=== PATIENT | female | born 1960 | race Caucasian/White ===

== ENCOUNTER 2022-03-18 10:30 | Emergency (ER) | payer OTHER, SELFPAY ==
[2022-03-18 10:35] VITALS: BP 143/99; PULSE 94; RESP 20; TEMP 34.9; O2SAT 96; BMI 26.6
--- NOTE | 2022-03-18 10:54 | ED_ITS ---
HPI - General Adult General Chief complaint: Laceration/Wound Stated complaint: Cut L index finger with knife Time Seen by Provider: 03/18/22 10:37 History of Present Illness HPI narrative: Patient presents with a knife cut to her dorsum of her index finger. She did this accidentally while cleaning a knife in sharpening it. She is about 9 years from her last tetanus shot. Has been recovering from breast and ovarian cancer in the past she is doing well from that apparently. Related Data Allergies Allergy/AdvReac Type Severity Reaction Status Date / Time Penicillins Allergy Verified 03/18/22 10:35 Review of Systems Narrative: No history of chronic wounds or infection problems or healing issues PFSH PFSH Social History Smoking Status: Never smoker Do you use any of these nicotine containing products: None Second hand tobacco smoke exposure: No How often do you have a drink containing alcohol: 2-4 times a month How many standard drinks containing alcohol do you have on a typical day: 1 or 2 How often do you have six or more drinks on one occasion: Never AUDIT-C Alcohol total score: 2 Non-prescribed substance use: denies use service: No Exam Narrative: Exam Narrative: Objective small tangential caught over the proximal dorsum of the index finger she got full extension and flexion of the finger no neurovascular tendon invol vement apparent. Good distal CMS Procedure: After 1% xylocaine without epinephrine injected for anesthesia 3-0 simple opted Ethilon placed x3 good skin edge approximation good hemostasis Const: Vital Signs, click to edit/add: Vital Signs - 24 hr 03/18/22 10:35 Temperature 94.9 F L Pulse Rate [Pulse Oximeter] 94 Respiratory Rate 20 Blood Pressure [Ri ght Upper Arm] 143/99 H Pulse Oximetry 96 Oxygen Delivery Me thod Room Air Course Vital Signs Vital signs: Initial Vital Signs Temperature 94.9 F L 03/18/22 10:35 Temperature Source Temporal Artery Scan 03/18/22 10:35 Pulse Rate 94 03/18/22 10:35 Pulse Rhythm 03/18/22 10:35 Respiratory Rate 20 03/18/22 10:35 Blood Pressure 143/99 H 03/18/22 10:35 Blood Pressure Mean 113 03/18/22 10:35 Blood Pressure Position Supine 03/18/22 10:35 Pulse Oximetry 96 03/18/22 10:35 Oxygen Delivery Method 03/18/22 10:35 Vital Signs Temperature 94.9 F L 03/18/22 10:35 Pulse Rate 94 03/18/22 10:35 Respiratory Rate 20 03/18/22 10:35 Blood Pressure 143/99 H 03/18/22 10:35 Pulse Oximetry 96 03/18/22 10:35 Oxygen Delivery Method 03/18/22 10:35 Temperature 94.9 F L 03/18/22 10:35 Pulse Rate 94 03/18/22 10:35 Respiratory Rate 20 03/18/22 10:35 Blood Pressure 143/99 H 03/18/22 10:35 Pulse Oximetry 96 03/18/22 10:35 Oxygen Delivery Method 03/18/22 10:35 Medical Decision Making MDM Narrative Medical decision making narrative: Suture removal in 1 week, watch for redness infection, keep covered until tomorrow then may simply leave open to air. Discharge Plan Discharge Clinical Impression: Laceration Patient Disposition: Home, Self-Care Condition: Improved Additional Instructions: Suture removal in 7 days, watch for infection redness, keep covered till tomorrow and then may just simply leave open to air. Return as needed. Activity Level: Light activity Discharge Diet: Regular Follow Up/Referrals: Willis Robledo MD [Primary Care Provider] - Stand Alone Forms: [employer] Info Instructions
[2022-03-18] MEDS: TETANUS/DIPHTH/PERTUSSIS 0.5 ML SYRINGE IM (11:07)
== END 2022-03-18 11:11 | disposition home or self-care (01) ==
LOC: ED 11:22
PROVIDERS: Emergency Provider Family Medicine; PCP Family Medicine
DX: S61.211A Laceration without foreign body of left index finger without damage to nail, initial encounter (principal); W26.0XXA Contact with knife, initial encounter
CPT/HCPCS: 12001; 90471; 90715; 99283

== ENCOUNTER 2024-07-28 08:02 | Outpatient (CLI) | payer BC, SELFPAY ==
--- NOTE | 2024-07-28 08:15 | MR_ITS ---
[address] [address] Phone:?[phone] Fax:?[phone] Referring Physician Information: Marty Anderson M.D. [id number] [address] Phone:?[phone] Fax:?[phone] Patient:?Daniella Harrington D.O.B:?1960 Sex:?Female Phone:?[phone] [facility] MRN:?[id number] Exam Date:?07/28/2024 EXAM: MRI OF THE LEFT HAND, WITHOUT CONTRAST CLINICAL: Evaluate for foreign body involving the left hand. COMPARISONS: X-rays 07/09/24. TECHNICAL: Multiplanar multisequence MRI of the left hand was obtained. SEDATION: None. CONTRAST: None. FINDINGS: No evidence of acute fracture, subluxation or dislocation involving the osseous structures of the hand. There is small osseous cystic change involving the head of the distal third metacarpal. Imaged flexor and extensor tendons of the hand appear intact. No evidence of flexor tendon bowstringing. Collateral ligamentous structures of the hand appear intact. There is a very small fluid collection involving the soft tissues along the ulnar proximal aspect of the fourth digit proximal phalanx measuring approximately 5 x 4 x 6 mm in size on axial series 3.2 images 75 and sagittal series 6.2 images 37. Very small linear internal low intensity focus within this fluid collection is concerning for underlying foreign body. Additional small 4 mm focus of fluid and peripheral low signal scarring is seen along the dorsal ulnar aspect of the head of the distal fourth metacarpal on sagittal series 6.2 images 38 and axial series 3.2 images 70-71 with question of associated additional internal foreign body. IMPRESSION: 1. Very small fluid collection involving the soft tissues along the ulnar proximal aspect of the fourth digit proximal phalanx with a very small linear internal focus concerning for underlying foreign body as clinically suspected. Additional very small 4 mm focus of fluid, peripheral low signal scarring and question of additional internal foreign body along the dorsal ulnar aspect of the head of the distal fourth metacarpal. 2. No additional internal derangement. JCZ Electronically signed on 07/28/2024 11:49:00 AM by Erasmo Rodriguez D.O.
== END 2024-07-28 08:03 | disposition home or self-care (01) ==
LOC: MRI 08:04
PROVIDERS: PCP Student in an Organized Health Care Education/Training Program; Visit Provider Orthopaedic Surgery
DX: S60.552A Superficial foreign body of left hand, initial encounter (principal)
CPT/HCPCS: 73218

== ENCOUNTER 2024-08-07 06:08 | Day surgery (SDC) | payer BC, SELFPAY ==
[2024-08-07 06:30] VITALS: BMI 24.4
[2024-08-07] MEDS: LACTATED RINGERS 1000 ML 1,000 ML 100 ML IV (06:30)
[2024-08-07 06:38] VITALS: BP 125/84; PULSE 58; RESP 16; TEMP 37.1; O2SAT 96
[2024-08-07] MEDS: SODIUM CHLORIDE 0.9 % (FLUSH) 10 ML SYRINGE IVF (06:52)
--- NOTE | 2024-08-07 07:05 | W.PM.H&PU ---
History & Physical Update History & Physical Update H&P Reviewed and patient assessed: No changes noted H&P Updates: MRI confirmed presence of a foreign body at the ulnar base of the left ring finger proximal phalanx. After discussion of treatment options, patient has elected to proceed with surgical excision of this foreign body. Risks and benefits of procedure have been discussed with patient, all questions answered, and informed consent has been obtained.
--- NOTE | 2024-08-07 07:12 | P.ORPRC_ITS ---
Procedure Note Date of procedure: 08/07/24 Procedure: PREOPERATIVE DIAGNOSIS: 1. Left hand foreign body POSTOPERATIVE DIAGNOSIS: 1. Left hand foreign body 2. Left hand soft tissue mass PROCEDURE: 1. Left hand soft tissue mass and foreign body excision SURGEON: Jasson Anderson MD. MANAGER LIGHTING: Michelle Ojeda P.A.-C. - Of note, an supply assistant was critical for this case to aid in patient positioning, tissue retraction, limb manipulation/positioning, and wound closure. ANESTHESIA: Local with monitored anesthesia care TOURNIQUET: 19 minute at 225 mmHg ESTIMATED BLOOD LOSS: 2 mL COMPLICATIONS: None SPECIMENS: Soft tissue mass measuring 5 mm x 8 mm sent for pathology. INDICATIONS: The patient is a pleasant 63-year-old female who was working on her property 6-7 weeks ago and had a small sliver of a jess gets stuck into her hand. The piece of jess became imbedded in her hand, and she is here today to have it surgically excised. Prior to surgery risks and benefits of the procedure discussed with patient, all questions were answered, and informed consent was obtained. FINDINGS: Foreign body consistent with a read which measured 20 mm x 1 mm. Soft tissue mass measuring 5 mm x 8 mm was sent for pathology. DESCRIPTION OF PROCEDURE: Patient was seen preoperatively and operative site was marked. She was then brought to the operating room placed supine persistent or table. Monitored anesthesia care was provided by anesthesia staff and patient was given Ancef preoperatively for prophylaxis. Ultrasound was used to localize the foreign body. The left upper extremity was then prepped and draped in usual sterile fashion. A surgical time-out was performed confirming patient identity, surgical site, and surgical procedure. The subcutaneous tissues at the planned surgical site were injected with 1% plain lidocaine. An incision measuring approximately 2 cm was made through the skin. Blunt dissection was used to dissect through subcutaneous tissues. An encapsulated foreign body was identified in the subcutaneous tissues on the ulnar aspect of the ring finger proximal phalanx. This foreign body was removed in its entirety. At the proximal extent of the foreign body dorsal to the 4th MCP joint and superficial to the extensor tendons, there was a subcutaneous soft tissue mass. This mass was circumferentially dissected out from the surrounding soft tissues using tenotomy scissors. Mass measured 5 mm x 8 mm. This mass was associated with the tissue that had encapsulated the foreign body, which was also removed. Mass was sent for pathology. After removal of this mass no further palpable soft tissue masses or foreign bodies were identified. The tourniquet was released. Tourniquet time was 19 minutes. Wound was irrigated with copious amounts of normal saline, and hemostasis was achieved with bipolar electrocautery. Skin incision was closed with 4-0 nylon simple interrupted sutures and sterile dressings were applied. Patient was awoken from anesthesia transferred to the recovery room in stable condition. PLAN: 1. Keep bandage in place for 48 hours. Keep bandage clean and dry. 2. Ice and elevation as needed for pain and swelling. 3. Acetaminophen and/or ibuprofen as needed for pain control. 4. Follow-up in Orthopedic Clinic in 10-14 days for wound check and suture removal.
[2024-08-07] MEDS: CEFAZOLIN 1 GM inj IVP (07:26)
[2024-08-07] MEDS: LIDOCAINE 1 % PF 30 ML INJECTION (07:43)
--- NOTE | 2024-08-07 07:52 | SUR.OPER ---
foreign body was 2 cm long
[2024-08-07] MEDS: BACITRACIN OINTMENT BULK TUBE 1 APPLIC TOPICAL (08:10)
[2024-08-07 08:27] VITALS: BP 124/74; PULSE 54; RESP 16; TEMP 36.7; O2SAT 98
--- NOTE | 2024-08-07 08:27 | P.ANES_ITS ---
Anesthesia Charges Start Date/Time Anesthesia Start Date: 08/07/24 Anesthesia Start Time: 07:15 Stop Date/Time Anesthesia Stop Date: 08/07/24 Anesthesia Stop Time: 08:27 Coding CPT Codes CPT Codes: ANESTH SKIN EXT/PER/ATRUNK - 46716 ([id number]) P2 - PATIENT W/MILD SYST DISEASE, QZ - CHIEF ENGINEERING DIVISION SVC W/O GSE MECHANIC BY
--- NOTE | 2024-08-07 08:27 | W.ANESCHARGE ---
Anesthesia Charges Start Date/Time Anesthesia Start Date: 08/07/24 Anesthesia Start Time: 07:15 Stop Date/Time Anesthesia Stop Date: 08/07/24 Anesthesia Stop Time: 08:27 Coding CPT Codes CPT Codes: ANESTH SKIN EXT/PER/ATRUNK - 92155 ([id number]) P2 - PATIENT W/MILD SYST DISEASE, QZ - SILK FINISHER SVC W/O UNIVERSAL WINDING MACHINE OPERATOR BY
[2024-08-07 08:30] VITALS: BP 124/77; PULSE 55; RESP 16; O2SAT 98
[2024-08-07 08:45] VITALS: BP 125/74; PULSE 58; RESP 16; O2SAT 98
[2024-08-07 09:00] VITALS: BP 124/74; PULSE 58; RESP 16; O2SAT 98
== END 2024-08-07 09:30 | disposition home or self-care (01) ==
LOC: OR 06:09
PROVIDERS: PCP Student in an Organized Health Care Education/Training Program; Visit Provider Orthopaedic Surgery
PROC: (CPT 10121; principal; 2024-08-07 07:15)
DX: M79.5 Residual foreign body in soft tissue (principal)
CPT/HCPCS: 10121; 00400; J0690; J1100; J1885; J2003; J2405; J2704; J3010; J7120